=== PATIENT | female | born 1955 | race Two or more races ===

== ENCOUNTER 2018-12-04 09:55 | Outpatient (CLI) | payer OTHER | END 2018-12-04 11:29 | disposition home or self-care (01) | LOC: LAB 09:55 | DX: D51.3 Other dietary vitamin B12 deficiency anemia (principal); R71.8 Other abnormality of red blood cells; M50.00 Cervical disc disorder with myelopathy, unspecified cervical region; D51.8 Other vitamin B12 deficiency anemias; I10 Essential (primary) hypertension; K90.89 Other intestinal malabsorption; E03.8 Other specified hypothyroidism; M32.8 Other forms of systemic lupus erythematosus; M32.10 Systemic lupus erythematosus, organ or system involvement unspecified; M05.10 Rheumatoid lung disease with rheumatoid arthritis of unspecified site ==

== ENCOUNTER 2018-12-04 10:29 | Outpatient (CLI) | payer OTHER | END 2018-12-04 10:41 | disposition home or self-care (01) | LOC: SONOGRAMA 10:29 | DX: D51.3 Other dietary vitamin B12 deficiency anemia (principal); R71.8 Other abnormality of red blood cells; M50.00 Cervical disc disorder with myelopathy, unspecified cervical region ==

== ENCOUNTER 2021-07-01 13:30 | Outpatient (CLI) | payer OTHER | END 2021-07-01 13:31 | disposition home or self-care (01) | LOC: PPH VACUNA 13:30 | PROVIDERS: ATTEND Emergency Medicine Pediatric Emergency Medicine | DX: Z23 Encounter for immunization (principal) ==

== ENCOUNTER 2022-01-12 08:00 | Outpatient (CLI) | payer OTHER | END 2022-01-12 08:30 | disposition home or self-care (01) | LOC: PPH VACUNA 08:00 | PROVIDERS: ATTEND Emergency Medicine Pediatric Emergency Medicine | DX: Z23 Encounter for immunization (principal); Z71.85 Encounter for immunization safety counseling ==